=== PATIENT | female | born 1985 ===

== ENCOUNTER 2019-01-02 14:41 | Emergency (ER) | payer OTHER ==
[2019-01-02 14:53] VITALS: BP 126/81; PULSE 92; RESP 17; TEMP 99.1; O2SAT 98
--- NOTE | 2019-01-02 15:30 | C.PDOC ---
History Of Present Illness 33 year old female patient presents to the ER complaining of left lower back pain for the past week. Patient reports that her back pain radiates to the left foot and left heel. Patient notes that pain is worse with movement and when she bends forward. Patient takes tylenol for the pain but it does not provide relief. Patient denies fall, trauma, chest pain, shortness of breath, headache, fever, chills, cough, nausea, vomiting, diarrhea, bowel or bladder incontinence/retention, saddle anesthesia, paresthesia, focal weakness, sensory deficit, gait dysfunction, hematuria or dysuria. Time Seen by Provider: 01/02/19 15:00 Chief Complaint (Nursing): Back Pain History Per: Patient History/Exam Limitations: no limitations Onset/Duration Of Symptoms: Days Current Symptoms Are (Timing): Still Present Past Medical History Reviewed: Historical Data, Nursing Documentation, Vital Signs Vital Signs: Last Vital Signs Temp 99.1 F 01/02/19 14:50 Pulse 92 H 01/02/19 14:50 Resp 17 01/02/19 14:50 BP 126/81 01/02/19 14:50 Pulse Ox 98 01/02/19 14:50 Primary Care Provider: Chris Escobedo - Medical History PMH: Anxiety, Depression Family History: States: No Known Family Hx - Social History Hx Alcohol Use: Yes Hx Substance Use: No - Immunization History Hx Tetanus Toxoid Vaccination: Yes Hx Influenza Vaccination: Yes Hx Pneumococcal Vaccination: No Review Of Systems Except As Marked, All Systems Reviewed And Found Negative. Constitutional: Negative for: Fever, Chills, Other (fall, trauma ) Cardiovascular: Negative for: Chest Pain Respiratory: Negative for: Cough, Shortness of Breath Gastrointestinal: Negative for: Nausea, Vomiting, Diarrhea Genitourinary: Negative for: Dysuria, Incontinence, Hematuria, Other (saddle anesthesia, paresthesia ) Musculoskeletal: Positive for: Back Pain (left lower ), Foot Pain (left; radiated from left lower back ), Other (left heel pain; radiated from left lower back pain ) Neurological: Negative for: Headache, Other (focal weakness; sensory deficit; gait dysfunction ) Physical Exam - Physical Exam Appears: Non-toxic, No Acute Distress Skin: Warm, Dry, No Pale, No Rash Head: Atraumatic, Normacephalic Eye(s): bilateral: Normal Inspection, PERRL, EOMI Oral Mucosa: Moist Neck: Normal ROM, No Midline Cervical Tenderness, No Paracervical Tenderness, Supple Chest: Symmetrical, No Tenderness Cardiovascular: Rhythm Regular, No Friction Rub, No Murmur Respiratory: Normal Breath Sounds, No Wheezing Gastrointestinal/Abdominal: Bowel Sounds (active), Soft, No Tenderness Back: No CVA Tenderness, No Vertebral Tenderness, Other (left lower paralumbar tenderness) Extremity: Normal ROM (x4), No Swelling Neurological/Psych: Oriented x3, Normal Speech, Normal Cognition, Normal Sensation Gait: Steady ED Course And Treatment O2 Sat by Pulse Oximetry: 98 (RA) Pulse Ox Interpretation: Normal - Other Rad lumbar spine X-Ray: Read By Radiologist Interpretation: Accession No. : [id number]. Patient Name / ID : TEJAL [id number] / [id number]. Exam Date : 01/02/2019 15:31:25 ( Approved ). Study Comment : Sex / Age : F / 33Y. Creator : Judith Nicholas MD. Dictator : Judith Nicholas MD. Cell Operation Supervisor : Turn Out : Judith Nicholas MD. Approver2 : Report Date : 01/02/2019 16:08:07. My Comment : . Date of service: 01/02/2019. PROCEDURE: Radiographs of the Lumbar Spine. Three views. HISTORY: Low back pain. COMPARISON: None available. FINDINGS: BONES: Alignment appears satisfactory. No listhesis. No acute displaced fracture identified. DISC SPACES: Unremarkable. OTHER FINDINGS: None. IMPRESSION: No acute displaced fracture or subluxation identified. Medical Decision Making Medical Decision Making: Plans: -- UA -- LS spine XR Xrays are negative. On re-exam, the patient reports improvement of symptoms, Lungs are CTA, heart is RRR, abdomen is soft, non-tender and tolerating PO well. Pt is ambulatory in the ED with steady gait. Follow up with the medical doctor within 1-2 days. Return if worsened. Disposition - Disposition Referrals: Robert Perdomo MD [Non-Staff] - Disposition: HOME/ ROUTINE Disposition Time: 16:24 Condition: STABLE Additional Instructions: Follow up with the medical doctor within 1-2 days. Return if worsened. 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 - Scribe Statement The provider has reviewed the documentation as recorded by the Albin Little Do All medical record entries made by the Scribe were at my direction and personally dictated by me. I have reviewed the chart and agree that the record accurately reflects my personal performance of the history, physical exam, medical decision making, and the department course for this patient. I have also personally directed, reviewed, and agree with the discharge instructions and disposition.
[2019-01-02 15:40] LABS: HCG,QUALITATIVE URINE NEGATIVE (NEGATIVE); SQUAMOUS EPITHIAL 4 /hpf (0-5); URINE BACTERIA RARE (<OCC); URINE BILIRUBIN NEGATIVE (NEGATIVE); URINE BLOOD NEGATIVE (NEGATIVE); URINE CLARITY Hazy (Clear); URINE COLOR Yellow (YELLOW); URINE GLUCOSE (UA) NORMAL (Normal); URINE LEUKOCYTE ESTERASE NEG Leu/uL (Negative); URINE PROTEIN NEGATIVE (NEGATIVE)
[2019-01-02] MEDS ORDERED: Dexamethasone 4 mg/1 ml IM STA (15:57)
[2019-01-02] MEDS ORDERED: Lidocaine 5% Patch TD STA (15:58)
--- NOTE | 2019-01-02 16:11 | RAD ---
Date of service: 01/02/2019 PROCEDURE: Radiographs of the Lumbar Spine. Three views. HISTORY: Low back pain COMPARISON: None available. FINDINGS: BONES: Alignment appears satisfactory. No listhesis. No acute displaced fracture identified. DISC SPACES: Unremarkable. OTHER FINDINGS: None. IMPRESSION: No acute displaced fracture or subluxation identified.
[2019-01-02] MEDS ORDERED: Lidocaine 5% Patch TD ONE (16:15)
== END 2019-01-02 16:37 | disposition home or self-care (01) ==
LOC: C.ER 14:41
DX: M54.5 Low back pain (principal)
CPT/HCPCS: 72100; 81001; 84703; 96372; 99284; J1100